=== PATIENT | male | born 1995 ===

== ENCOUNTER → 2025-08-16 | Outpatient (REF) | payer OTHER ==
[2025-08-16 09:56] LABS: SEMEN APPEARANCE OPAQUE (OPAQUE); SEMEN VISCOSITY LIQUID (LIQUID); SEMEN VOLUME 6.2 ml (2.0-5.0)
[2025-08-16 09:57] LABS: SPERM CONCENTRATION 71.9 M/ml (>=15.0); WBC CONCENTRATION <=1 M/ml (<=1 M/ml)
[2025-08-16 09:58] LABS: TOTAL PROGRESSIVE SPERM 189.8 M/Ejac.
== END ==
LOC: M LAB REF 09:45
PROVIDERS: ATTEND Family Medicine
DX: N46.8 Other male infertility (principal)